=== PATIENT | male | born 1995 | race Caucasian/White ===

== ENCOUNTER 2018-07-24 07:23 | Day surgery (SDC) | payer OTHER ==
[2018-07-24] VITALS (14 sets, daily range): BP systolic 113–134; BP diastolic 64–80; PULSE 76–102; RESP 16–19; Ht 160 cm; Wt 64.1 kg
[~2018-07-24] VITALS: Ht 160 cm; Wt 64.1 kg
[2018-07-24] MEDS ORDERED: CEFAZOLIN 2 GM/50 ML (PMX) 50 ML IVPB ONE (08:00)
[2018-07-24] MEDS ORDERED: SOD CHLORIDE 0.9% 1,000 ML IV SCH (08:00)
--- NOTE | 2018-07-24 11:17 | PREAC ---
Date/Time of Note Date/Time of Note DATE: 07/24/18 TIME: 11:17 Anesthesia Eval and Record Evaluation Time Pre-Procedure Interview DATE: 07/24/18 TIME: 11:17 Age 23 Sex male NPO: 8 hrs Preoperative diagnosis LEFT INGUINAL HERNIA Planned procedure OPEN LEFT INGUINAL HERNIA REPAIR WITH MESH Past Medical History Past Medical History: None Surgery & Anesthesia Issues No known issue Meds Anticoagulation: No Beta Jose M within 24 hr: No Reason Beta Jose M not given: Pt. not on B-Jose M No Active Prescriptions or Reported Meds Current Medications Sodium Chloride 1,000 ml @ 75 mls/hr [id number] IV Last administered on 07/24/18at 08:11; Admin Dose 75 MLS/HR; Start 07/24/18 at 08:00; Stop 07/24/18 at 21:19 Meds reviewed: Yes Allergies Coded Allergies: No Known Drug Allergies (Unverified Allergy, Unknown, 07/24/18) Allergies Reviewed: Yes Labs/Studies Labs Reviewed: Reviewed by anesthesiologist test: N/A Pre-procedure Exam Last vitals Vital Signs Date Temp Pulse Resp B/P (MAP) Pulse Ox O2 O2 Flow FiO2 Time Delivery Rate 07/24/18 98.3 94 16 122/77 100 08:20 (92) Airway: Adequate mouth opening, Adequate thyromental dist Mallampati: Mallampati II Teeth: Normal Lung: Normal Heart: Normal ASA Physical Status ASA physical status: 1 Emergency: None Planned Anesthetic General/MAC: ETT Nerve block: TAP (left) Planned Pain Management Parenteral pain med Pre-operative Attestations Prior to commencing anesthesia and surgery, the patient was re-evaluated, there was verification of: *The patient's identity *The results of appropriate recent lab work and preoperative vital signs *The above evaluation not changing prior to induction *Anesthetic plan, risk benefits, alternative and complications discussed with patient/family; questions answered; patient/family understands, accepts and wishes to proceed. Carl Barrera M.D. July 24, 2018 11:17
[2018-07-24] MEDS ORDERED: HYDROmorphONE 1 MG/5 ML IV SYRINGE IV PRN ×3 (11:30)
[2018-07-24] MEDS ORDERED: ALBUTEROL 0.083% (NEB) 2.5 MG/3 ML AMP HHN PRN (11:30)
[2018-07-24] MEDS ORDERED: LABETALOL HCL 20MG INJ IV PRN (11:30)
[2018-07-24] MEDS ORDERED: EPHEDrine SULFATE 50 MG/5 ML SYG IV PRN (11:30)
[2018-07-24] MEDS ORDERED: MEPERIDINE 25 MG INJ IV PRN (11:30)
[2018-07-24] MEDS ORDERED: DIPHENHYDRAMINE 50 MG INJ IV PRN (11:30)
[2018-07-24] MEDS ORDERED: IPRATROPIUM (NEB) 0.5 MG/2.5 ML AMP HHN PRN (11:30)
[2018-07-24] MEDS ORDERED: ONDANSETRON 4 MG INJ IV PRN (11:30)
[2018-07-24] MEDS ORDERED: MIDAZOLAM 1 MG/ML 2 ML INJ IV PRN (11:30)
[2018-07-24] MEDS ORDERED: TRIMETHOBENZAMIDE 100 MG/ML VIAL IM PRN (11:30)
[2018-07-24] MEDS ORDERED: OXYCODONE/ACETAMINOPHEN (5/325) TAB PO PRN ×2 (11:30)
[2018-07-24] MEDS ORDERED: hydrALAzine 20 MG INJ IV PRN (11:30)
[2018-07-24] MEDS ORDERED: FENTAnyl 50 MCG/ML VIAL IV PRN ×3 (11:30)
[2018-07-24] MEDS ORDERED: BUPIVACAINE 0.25% (MPF) 30 ML INJ ONE (11:37)
--- NOTE | 2018-07-24 11:41 | PAC ---
Date/Time of Note Date/Time of Note DATE: 07/24/18 TIME: 11:41 Post-Anesthesia Notes Post-Anesthesia Note Last documented vital signs Vital Signs Date Temp Pulse Resp B/P (MAP) Pulse Ox O2 O2 Flow FiO2 Time Delivery Rate 07/24/18 98.3 94 16 122/77 100 08:20 (92) Activity: WNL Respiratory function: WNL Cardiovascular function: WNL Mental status: Baseline Pain reasonably controlled: Yes Hydration appropriate: Yes Nausea/Vomiting absent: Yes Carl Barrera M.D. July 24, 2018 11:41
[2018-07-24] MEDS ORDERED: DEXAMETHASONE 4 MG/ML 5 ML INJ ONE (11:42)
[2018-07-24] MEDS ORDERED: PROPOFOL 20 ML ONE ×2 (11:42→12:52)
[2018-07-24] MEDS ORDERED: NEOSTIGMINE 3 MG/3 ML SYRINGE ONE ×2 (11:42→12:22)
[2018-07-24] MEDS ORDERED: CEFAZOLIN 1 GM INJ ONE (11:42)
[2018-07-24] MEDS ORDERED: GLYCOPYRROLATE 0.4 MG INJ ONE ×2 (11:42→12:22)
[2018-07-24] MEDS ORDERED: ROCURONIUM 50 MG INJ ONE (11:42)
[2018-07-24] MEDS ORDERED: MIDAZOLAM 1 MG/ML 2 ML INJ ONE (11:42)
[2018-07-24] MEDS ORDERED: ONDANSETRON 4 MG INJ ONE (11:42)
[2018-07-24] MEDS ORDERED: FENTAnyl 50 MCG/ML VIAL ONE ×2 (11:42→12:19)
[2018-07-24] MEDS ORDERED: ROPIVACAINE 0.5 % 30 ML VIAL ONE (11:46)
[2018-07-24] MEDS ORDERED: POLYMYXIN/BACITRACIN 1L IRRIG ONE (12:14)
[2018-07-24] MEDS ORDERED: KETOROLAC 30 MG INJ ONE (12:46)
--- NOTE | 2018-07-24 12:55 | OPR ---
Date/Time of Note Date/Time of Note DATE: 07/24/18 TIME: 12:51 Operative Report Procedure Date: July 24, 2018 Preoperative Diagnosis left incarcerated inguinal hernia Postoperative Diagnosis left incarcerated inguinal hernia and hydrocele Operation/Procedure Performed 1. left incarcerated inguinal hernia repair with small ultrapro plug mesh 2. left hydrocelectomy Surgeon see signature line Die Maker Bench Stamping none Anesthesia Type: general Estimated Blood Loss: 10 - 50 ml's Transfusion none Specimen left hydrocele sac Grafts/Implants none Complications none Pt Condition Post Procedure: stable Indications This is a 23-year-old male with an incarcerated left inguinal hernia. He requires surgical repair. Risks alternatives benefits of percent were discussed the patient. Patient expressed understanding consents to the operation. Procedure Description Patient is taken to the OR and prepped and draped in usual sterile fashion. Surgical timeout was performed. IV antibiotics were given. Left inguinal oblique incision made with a 10 blade. Dissection with cardioscan to the external fascia. The external fascia is open with a 15 blade. This incision extended medial fairly lateral sparely with Metzenbaum scissors. Cord structures identified and encircled with a Felisa drain. It appeared that the cord structures are shortened however he did not have an undescended testicle. Further examination of the left testicle compared to the right appears that the left is a little bit small in the right. Additionally there was a hydrocele that was encountered. The hydrocele was opened in a controlled fashion. Excess hydrocele sac was excised and sent for specimen. The hydrocele sac was then marsupialized and closed with interrupted 3-0 Vicryl. The left testicle was then replaced back into the left scrotum. The hernia was then identified and manually reduced that was incarcerated. This area was then bolstered with the disc portion of the ultra pro plug hernia system mesh. The plug portion was secured in place with a running 0 Prolene from the pubic tubercle along the shelving is unlimited. Superiorly the plug was secured to enter oblique with interrupted 3-0 Vicryl. Onlay mesh is secured with a running 0 Prolene from the pubic tubercle along the shelving single limit. Straps are created reapproximate around the cord structures to re-create the inguinal ring with interrupted 0 Prolene. Onlay mesh is secured to enter oblique with interrupted 3-0 Vicryl. Externally fascia is closed with running 3-0 Vicryl. Regina's fascia is closed with interrupted 3-0 Vicryl. Skin is closed using inzorb observable skin stapler. The testicle was reexamined for appropriate placement in the left scrotum and it was in the appropriate position. A tap block was provided the anesthesia was at the beginning the case. Dry dressings were applied. Mirian OROPEZA July 24, 2018 12:55
[2018-07-24] MEDS ORDERED: HYDROCODONE/APAP (5/325) TAB PO ONE (13:00)
--- NOTE | 2018-07-24 13:14 | PAC ---
Date/Time of Note Date/Time of Note DATE: 07/24/18 TIME: 13:12 Post-Anesthesia Notes Post-Anesthesia Note Last documented vital signs Vital Signs Date Temp Pulse Resp B/P (MAP) Pulse Ox O2 O2 Flow FiO2 Time Delivery Rate 07/24/18 98.3 98 15 131/76 100 6L FM 13:10 Activity: WNL Respiratory function: WNL Cardiovascular function: WNL Mental status: Baseline Pain reasonably controlled: Yes Hydration appropriate: Yes Nausea/Vomiting absent: Yes HAYLEY GARCIA CRNA July 24, 2018 13:14
[2018-07-24] MEDS ORDERED: HYDROmorphONE 1 MG/ML SYG IV PRN (14:30)
== END 2018-07-24 15:25 | disposition home or self-care (01) ==
LOC: SDS 07:23
PROVIDERS: ATTEND Surgery
DX: K40.30 Unilateral inguinal hernia, with obstruction, without gangrene, not specified as recurrent (principal); N43.3 Hydrocele, unspecified
CPT/HCPCS: 49507; 88302; C1781; J0690; J1100; J1170; J1885; J2250; J2405; J2710; J2795; J3010; Z7512; Z7610